=== PATIENT | female | born 1935 | race Caucasian/White ===

== ENCOUNTER 2020-08-20 06:08 | Emergency (ER) | payer MEDICARE, OTHER ==
[2020-08-20 06:21] VITALS: BP 167/94; PULSE 81
--- NOTE | 2020-08-20 06:58 | EDM.PDOC ---
<Ben Serrano - Last Filed: 08/20/20 07:18> ED HPI GENERAL MEDICAL PROBLEM - General Chief Complaint: Cardiovascular Problem Stated Complaint: HOT FLASHES/SWEATING/CHEST PAINS ON AND OFF Time Seen by Provider: 08/20/20 06:22 Source of Information: Reports: Patient, Other (Neighbor) History Limitations: Reports: No Limitations - History of Present Illness INITIAL COMMENTS - FREE TEXT/NARRATIVE: Mrs. Koenig is a very pleasant 85-year-old woman who is now brought to the ED by her neighbor after experiencing brief episodes of feeling hot and possibly diaphoretic since last night, then experiencing brief episodes of chest tightness or heaviness and lightheadedness this morning. She states that the sensation of feeling hot comes and goes, typically lasting about 5 minutes, then recurring about every 2 hours. Her chest heaviness or tightness also comes and goes, lasting about 2 minutes, also recurring about every 2 hours, but she states that it is not associated with her feeling hot. Her lightheadedness is worse if she is upright. No associated dyspnea or sense of impending doom, although the patient states that she has a very brief episode of nausea once this morning. She denies prior similar symptoms. She did not take any [id number] or home remedies prior to coming to the ED. Here in the ED, the patient's initial BP is found to be elevated at 167/94, otherwise, she is hemodynamically stable, afebrile, saturating 98% on room air. Prior to last night, the patient denies having a recent fever, chills, sore throat, ear pain, nasal or sinus congestion, cough, dyspnea, chest pain, palpitations, nausea, vomiting, constipation, diarrhea, abdominal pain, urinary symptoms, recent weight gain or weight loss, recent bloody bowel movements or black bowel movements, recent joint aches, headaches, or rashes. The patient's PCP is AJ Doe. Her Ironworker is Dr. Jake Edwards. She has not received an influenza vaccine this season, and declined an offer to get one here in the ED. Chest Pain Score (Numeric/FACES): 2 - Related Data Allergies Allergy/AdvReac Type Severity Reaction Status Date / Time Penicillins Allergy Swelling Verified 08/20/20 06:21 procaine [From Novocain] Allergy Cannot Verified 08/20/20 06:21 Remember codeine AdvReac Nausea Verified 08/20/20 06:21 Home Meds: Home Meds Calcium Carbonate [Calcium] 1 tab PO DAILY 07/04/16 [History] Cholecalciferol (Vitamin D3) [Vitamin D3] 1 tab PO DAILY 07/04/16 [History] Folic Acid 1 cap PO DAILY 07/04/16 [History] Levothyroxine Sodium 1 tab PO DAILY 07/04/16 [History] Methotrexate Sodium [Methotrexate] 6 tab PO MO 07/04/16 [History] Hydroxychloroquine Sulfate [Plaquenil] 200 mg PO BID 07/05/16 [History] Biotin 5,000 mcg SL DAILY 08/20/20 [History] Past Medical History HEENT History: Reports: Impaired Vision (wears glasses), Other (See Below) (Dentures) Musculoskeletal History: Reports: Osteoarthritis Endocrine/Metabolic History: Reports: Hypothyroidism (following partial thyroidectomy) - Past Surgical History HEENT Surgical History: Reports: Tonsillectomy Female Surgical History: Reports: Section (x 1) Endocrine Surgical History: Reports: Thyroidectomy (partial) Social & Family History - Tobacco Use Tobacco Use Status *Q: Never Tobacco User - Alcohol Use Alcohol Use History: No - Recreational Drug Use Recreational Drug Use: No - Living Situation & Occupation Living situation: Reports: , Alone Occupation: Retired ED ROS GENERAL - Review of Systems Review Of Systems: Comprehensive ROS is negative, except as noted in HPI. ED EXAM, GENERAL - Physical Exam Exam: See Below Exam Limited By: No Limitations General Appearance: Alert, WD/WN, No Apparent Distress Eye Exam: Bilateral Eye: EOMI, Normal Inspection Ears: Normal External Exam, Hearing Grossly Normal Nose: Normal Inspection Throat/Mouth: Normal Inspection, Normal Lips, Normal Voice, No Airway Compromise Head: Atraumatic, Normocephalic Neck: Normal Inspection, Full Range of Motion Respiratory/Chest: No Respiratory Distress, Lungs Clear, Normal Breath Sounds, No Accessory Muscle Use Cardiovascular: Normal Peripheral Pulses, Regular Rate, Rhythm, No Gallop, No JVD, No Murmur, No Rub Peripheral Pulses: 3+: Radial (L), Radial (R) GI/Abdominal: Normal Bowel Sounds, Soft, Non-Tender, No Organomegaly, No Distention, No Abnormal Bruit, No Mass Back Exam: Normal Inspection, Full Range of Motion, NT Extremities: Normal Inspection, Normal Range of Motion, Normal Capillary Refill Neurological: Alert, Oriented, Normal Cognition, No Motor/Sensory Deficits Psychiatric: Normal Affect Skin Exam: Warm, Dry, Intact, Normal Color, No Rash #1 Interpretation EKG Date: 08/20/20 Time: 06:19 Rhythm: NSR Rate (Beats/Min): 80 [place]: 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 No associated dyspnea, although she did have a single brief episode of nausea. ECG obtained at triage demonstrates a right bundle branch block and left anterior fascicular block, preventing me from determining if there are any ischemic changes. She is in a normal sinus rhythm, but has left atrial enlargement and a borderline first- degree AV block, and her QTc prolonged at 510 ms. Her physical exam is unremarkable. A CBC, CMP, troponin, and portable chest x-ray were ordered at triage. I have added a Mg level, coags and orthostatics. 08/20/20 07:21 The patient's CBC is unremarkable. Her CMP is remarkable for a Cr at 1.3, with a BUN normal at 15, and the remainder of her CMP being unremarkable. Her troponin is undetectably low. Her coags are still pending. Orthostatics and a portable chest x-ray have not yet been obtained. Case discussed with Dr. Valdez, and care of the patient turned over to him at this time, for change of shift. Departure - Departure Disposition: Home, Self-Care 01 Clinical Impression: Palpitations, Atypical chest pain - Discharge Information *PRESCRIPTION DRUG MONITORING PROGRAM REVIEWED*: Not Applicable *COPY OF PRESCRIPTION DRUG MONITORING REPORT IN PATIENT TIFFANY: Not Applicable Instructions: Nonspecific Chest Pain, Adult, [id number], Palpitations, [id number] Referrals: Aziza Dudley PA-C [Primary Care Provider] - Jake Edwards MD [Ordering Only Provider] - Forms: ED Department Discharge Additional Instructions: 48 hour holter moniter. Rest. Continue current meds. Follow up with Aziza Dudley at the clinic in about 5 to 10 days to get Holter results, further evaluation and treatment as needed. Return to ED as discussed if symptoms worsening in any way. Sepsis Event Note (ED) - Evaluation Sepsis Screening Result: No Definite Risk <Jluis Valdez - Last Filed: 08/20/20 11:02> Course - Vital Signs Last Recorded V/S: Last Vital Signs Temp 98.5 F 08/20/20 06:19 Pulse 81 08/20/20 06:19 Resp 16 08/20/20 06:19 BP 167/94 H 08/20/20 06:19 Pulse Ox 98 08/20/20 06:19 - Orders/Labs/Meds Orders: Active Orders 24 hr Category Date Time Status EKG Documentation Completion [RC] ASDIRECTED Care 08/20/20 06:25 Active Holter Monitor 48 Hours [RC] .PRN Care 08/20/20 10:35 Active Orthostatic Vital Signs [RC] STAT Care 08/20/20 06:44 Active Chest 1V Frontal [CR] Stat Exams 08/20/20 06:25 Taken EKG 12 Lead [EK] Stat Ther 08/20/20 06:25 Ordered Labs: Laboratory Tests 08/20/20 08/20/20 08/20/20 Range/Units 06:25 06:25 06:25 WBC 5.14 (3.98-10.04) K/mm3 RBC 4.35 (3.98-5.22) M/mm3 Hgb 13.9 (11.2-15.7) gm/dl Hct 42.4 (34.1-44.9) % MCV 97.5 H (79.4-94.8) fl MCH 32.0 (25.6-32.2) pg MCHC 32.8 (32.2-35.5) g/dl RDW Std Deviation 48.1 H (36.4-46.3) fL Plt Count 192 (182-369) K/mm3 MPV 11.2 (9.4-12.3) fl Neut % (Auto) 74.2 H (34.0-71.1) % Lymph % (Auto) 17.1 L (19.3-51.7) % [place] % (Auto) 6.4 (4.7-12.5) % Eos % (Auto) 1.9 (0.7-5.8) Baso % (Auto) 0.4 (0.1-1.2) % Neut # (Auto) 3.81 (1.56-6.13) K/mm3 Lymph # (Auto) 0.88 L (1.18-3.74) K/mm3 [place] # (Auto) 0.33 (0.24-0.36) K/mm3 Eos # (Auto) 0.10 (0.04-0.36) K/mm3 Baso # (Auto) 0.02 (0.01-0.08) K/mm3 PT 10.2 (9.7-12.0) SECONDS INR 0.95 APTT 27.1 (21.7-31.4) SECONDS Sodium 142 (136-145) mEq/L Potassium 4.0 (3.5-5.1) mEq/L Chloride 108 H (98-107) mEq/L Carbon Dioxide 25 (21-32) mEq/L Anion Gap 13.0 (5-15) BUN 15 (7-18) mg/dL Creatinine 1.3 H (0.55-1.02) mg/dL Est Cr Clr Drug Dosing 27.32 mL/min Estimated GFR (MDRD) 39 (>60) mL/min BUN/Creatinine Ratio 11.5 L (14-18) Glucose 109 (83-115) mg/dL Calcium 9.6 (8.5-10.1) mg/dL Magnesium (1.8-2.4) mg/dl Total Bilirubin 0.3 (0.2-1.0) mg/dL AST 17 (15-37) U/L ALT 28 (14-59) U/L Alkaline Phosphatase 75 (46-116) U/L Troponin I < 0.017 (0.00-0.056) ng/mL Total Protein 7.1 (6.4-8.2) g/dl Albumin 3.4 (3.4-5.0) g/dl Globulin 3.7 gm/dL Albumin/Globulin Ratio 0.9 L (1-2) 08/20/20 08/20/20 Range/Units 06:35 09:42 WBC (3.98-10.04) K/mm3 RBC (3.98-5.22) M/mm3 Hgb (11.2-15.7) gm/dl Hct (34.1-44.9) % MCV (79.4-94.8) fl MCH (25.6-32.2) pg MCHC (32.2-35.5) g/dl RDW Std Deviation (36.4-46.3) fL Plt Count (182-369) K/mm3 MPV (9.4-12.3) fl Neut % (Auto) (34.0-71.1) % Lymph % (Auto) (19.3-51.7) % [place] % (Auto) (4.7-12.5) % Eos % (Auto) (0.7-5.8) Baso % (Auto) (0.1-1.2) % Neut # (Auto) (1.56-6.13) K/mm3 Lymph # (Auto) (1.18-3.74) K/mm3 [place] # (Auto) (0.24-0.36) K/mm3 Eos # (Auto) (0.04-0.36) K/mm3 Baso # (Auto) (0.01-0.08) K/mm3 PT (9.7-12.0) SECONDS INR APTT (21.7-31.4) SECONDS Sodium (136-145) mEq/L Potassium (3.5-5.1) mEq/L Chloride (98-107) mEq/L Carbon Dioxide (21-32) mEq/L Anion Gap (5-15) BUN (7-18) mg/dL Creatinine (0.55-1.02) mg/dL Est Cr Clr Drug Dosing mL/min Estimated GFR (MDRD) (>60) mL/min BUN/Creatinine Ratio (14-18) Glucose (83-115) mg/dL Calcium (8.5-10.1) mg/dL Magnesium 2.2 (1.8-2.4) mg/dl Total Bilirubin (0.2-1.0) mg/dL AST (15-37) U/L ALT (14-59) U/L Alkaline Phosphatase (46-116) U/L Troponin I < 0.017 (0.00-0.056) ng/mL Total Protein (6.4-8.2) g/dl Albumin (3.4-5.0) g/dl Globulin gm/dL Albumin/Globulin Ratio (1-2) - Re-Assessments/Exams Free Text/Narrative Re-Assessment/Exam: 08/20/20 08:00. Have assumed care from Dr Serrano after change of shift. I agree with his hx and exam as documented. Trop. has come back normal. other labs also all relatively normal. CXR is good. She is resting comfortably pain free. Will do a 2nd 3 hr trop. 08/20/20 10:25. repeat trop also normal. She has been pain free here in the ED. I do notice some PAC's while visiting with her. She states she has been noticing palpitations on and off and that may be some of the discomfort and associated sx she reported on arrival to ED. Have not seen any PVC's or other rythm abnormality and nothing else reported to me. Will send her home with a 48 hr holter moniter. Departure - Departure Time of Disposition: 10:49 Condition: Fair Sepsis Event Note (ED) - Focused Exam Vital Signs: Vital Signs Temp Pulse Resp BP Pulse Ox 08/20/20 06:19 98.5 F 81 16 167/94 H 98 - My Orders Last 24 Hours: My Active Orders 08/20/20 10:35 Holter Monitor 48 Hours [RC] .PRN - Assessment/Plan Last 24 Hours: My Active Orders 08/20/20 10:35 Holter Monitor 48 Hours [RC] .PRN
--- NOTE | 2020-08-21 10:23 | CR ---
Chest: Portable view of the chest was obtained. Comparison: Prior chest x-ray of 02/16/16. Heart size and mediastinum are normal for portable technique. Lungs are clear with no acute parenchymal change. Bony structures show nothing acute. Impression: 1. Nothing acute is appreciated on portable chest x-ray. Diagnostic code #1
== END 2020-08-20 11:00 | disposition home or self-care (01) ==
LOC: JD.ED 06:08
DX: R07.89 Other chest pain (principal); R00.2 Palpitations; I45.10 Unspecified right bundle-branch block; E03.9 Hypothyroidism, unspecified; Z98.890 Other specified postprocedural states; Z88.0 Allergy status to penicillin; Z88.8 Allergy status to other drugs, medicaments and biological substances; Z88.5 Allergy status to narcotic agent; Z79.899 Other long term (current) drug therapy
CPT/HCPCS: 36415; 71045; 71045-26; 80053; 83735; 84484; 85025; 85610; 85730; 93005; 93010; 93225; 93226; 99284; 99285-25

== ENCOUNTER 2020-11-01 08:20 | Day surgery (SDC) | payer MEDICARE, OTHER ==
[~2020-11-01 08:20] MED LIST: Cefuroxime 10 MG/ML SYRINGE EYERT SCH; Lidocaine 1% PF 2 ML SDV INJECT SCH; Pilocarpine 4% Ophth Soln 15 ML Bot EYERT SCH
--- NOTE | 2020-11-01 08:51 | PCM.PREANE ---
Preanesthetic Assessment - Anesthesia/Transfusion/Family Hx Anesthesia History: Prior Anesthesia Without Reaction Transfusion History: No Prior Transfusion(s) Type of Transfusion Reactions: Reports: Unknown - Review of Systems General: No Symptoms Pulmonary: No Symptoms Cardiovascular: No Symptoms, Other (EF 60-65%, EKG nsr with LAE, 1 avb, RBBB, Lafb) Gastrointestinal: No Symptoms Neurological: No Symptoms Other: Reports: Thyroid Problems - Physical Assessment NPO Status Date: 10/31/20 NPO Status Time: 20:00 Height: 1.63 m Weight: 79.379 kg ASA Class: 2 Mental Status: Alert & Oriented x3 Dentition: Reports: Dentures Thyro-Mental Finger Breadths: 3 Mouth Opening Finger Breadths: 3 ROM/Head Extension: Full Lungs: Clear to Auscultation, Normal Respiratory Effort Cardiovascular: Regular Rate, Regular Rhythm - Allergies Allergies/Adverse Reactions: Allergies Allergy/AdvReac Type Severity Reaction Status Date / Time Penicillins Allergy Swelling Verified 10/28/20 12:54 procaine [From Novocain] Allergy Cannot Verified 10/28/20 12:54 Remember codeine AdvReac Nausea Verified 10/28/20 12:54 - Blood Blood Available: No Product(s) Available: None - Anesthesia Plan Pre-Op Medication Ordered: None - Acknowledgements Anesthesia Type Planned: MAC PreAnesthesia Questionnaire HEENT History: Reports: Impaired Vision (wears glasses), Other (See Below) (Dentures) Other HEENT History: glasses, dentures Cardiovascular History: Reports: Other (See Below) Other Cardiovascular History: edema, irreg heart rhythm Gastrointestinal History: Reports: Chronic Diarrhea 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: Musculoskeletal History: Reports: Osteoarthritis Endocrine/Metabolic History: Reports: Hypothyroidism (following partial thyroidectomy) Dermatologic History: Reports: Seborrheic Dermatitis Other Dermatologic History: actinic keratosis - Past Surgical History HEENT Surgical History: Reports: Tonsillectomy Female Surgical History: Reports: Section (x 1) Endocrine Surgical History: Reports: Thyroidectomy (partial) - HOME MEDS Home Medications: Home Meds Calcium Carbonate [Calcium] 1 tab PO DAILY 07/04/16 [History] Cholecalciferol (Vitamin D3) [Vitamin D3] 1 tab PO DAILY 07/04/16 [History] Folic Acid 1 cap PO DAILY 07/04/16 [History] Levothyroxine Sodium 1 tab PO DAILY 07/04/16 [History] Methotrexate Sodium [Methotrexate] 6 tab PO MO 07/04/16 [History] Hydroxychloroquine Sulfate [Plaquenil] 200 mg PO BID 07/05/16 [History] Biotin 5,000 mcg SL DAILY 08/20/20 [History] Lutein/Minerals/Vit A,C & E [Ocuvite] 1 tab PO DAILY 10/28/20 [History] Metoprolol Succinate 25 mg PO DAILY 10/28/20 [History] - CURRENT (IN HOUSE) MEDS Current Meds: Current Medications Brimonidine Tartrate (Brimonidine 0.2% Ophth Soln 5 Ml Bottle) 0 ml EYERT ASDIRECTED JOSE Stop: 11/01/20 18:00 Cefuroxime Sodium (Cefuroxime 10 Mg/Ml Syringe) 0 mg EYERT ASDIRECTED JOSE Stop: 11/01/20 18:00 Lidocaine HCl (Lidocaine 1% Pf 2 Ml Sdv) 0 ml INJECT ASDIRECTED JOSE Stop: 11/01/20 18:00 Phenylephrine HCl (Phenylephrine 2.5% Ophth Soln 2 Ml Bot) 0 ml EYERT ASDIRECTED JOSE Stop: 11/01/20 18:00 Pilocarpine HCl (Pilocarpine 4% Ophth Soln 15 Ml Bot) 0 ml EYERT ASDIRECTED JOSE Stop: 11/01/20 18:00 Polymyxin/Trimethoprim Sulfate (Polymyxin B/Trimethoprim 10 Ml Bottle) 0 ml EYERT ASDIRECTED JOSE Stop: 11/01/20 18:00 Tetracaine HCl (Tetracaine Hcl/Pf 0.5% 4 Ml Bottle) 0 ml EYEBOTH ASDIRECTED JOSE Stop: 11/01/20 18:00 Tropicamide (Tropicamide 1% Ophth Soln 15 Ml Bottle) 0 ml EYERT ASDIRECTED JOSE Stop: 11/01/20 18:00
[2020-11-01] MEDS: Polymyxin B/Trimethoprim 10 ML Bottle EYERT SCH ×3 (08:55→10:28)
[2020-11-01] MEDS: Brimonidine 0.2% Ophth Soln 5 ML Bottle EYERT SCH ×3 (08:59→10:28)
[2020-11-01] MEDS: Phenylephrine 2.5% Ophth Soln 2 ML Bot EYERT SCH ×5 (09:04→10:09)
[2020-11-01] MEDS: Tropicamide 1% Ophth Soln 15 ML Bottle EYERT SCH ×4 (09:07→09:52)
[2020-11-01] MEDS: Tetracaine HCl/PF 0.5% 4 ML Bottle EYEBOTH SCH ×3 (09:52→10:17)
--- NOTE | 2020-11-01 10:29 | PCM48HPAN ---
Post Anesthesia Note - EVALUATION WITHIN 48HRS OF ANESTHETIC Vital Signs in Normal Range: Yes Patient Participated in Evaluation: Yes Respiratory Function Stable: Yes Airway Patent: Yes Cardiovascular Function Stable: Yes Hydration Status Stable: Yes Pain Control Satisfactory: Yes Nausea and Vomiting Control Satisfactory: Yes Mental Status Recovered: Yes Vital Signs: Last Vital Signs Temp 36.7 C 11/01/20 08:35 Pulse 70 11/01/20 08:35 Resp 16 11/01/20 08:35 BP 154/78 H 11/01/20 08:35 Pulse Ox 96 11/01/20 08:35
[2020-11-01 10:51] VITALS: BP 124/81; PULSE 64
== END 2020-11-01 10:37 | disposition home or self-care (01) ==
LOC: JD.SDS 08:20
PROVIDERS: ATTEND Ophthalmology
DX: H25.813 Combined forms of age-related cataract, bilateral (principal); H02.834 Dermatochalasis of left upper eyelid; H02.831 Dermatochalasis of right upper eyelid; H35.373 Puckering of macula, bilateral; H16.103 Unspecified superficial keratitis, bilateral; H16.223 Keratoconjunctivitis sicca, not specified as Sjogren's, bilateral; H43.812 Vitreous degeneration, left eye; E07.9 Disorder of thyroid, unspecified; Z79.899 Other long term (current) drug therapy; Z79.890 Hormone replacement therapy; Z88.5 Allergy status to narcotic agent; Z88.8 Allergy status to other drugs, medicaments and biological substances; I48.91 Unspecified atrial fibrillation; Z88.0 Allergy status to penicillin
CPT/HCPCS: 66984; J0697; C1780

== ENCOUNTER 2020-12-06 08:59 | Day surgery (SDC) | payer MEDICARE, OTHER ==
[2020-12-06] MEDS: Polymyxin B/Trimethoprim 10 ML Bottle EYELF SCH ×4 (09:07→12:41)
[2020-12-06] MEDS: Brimonidine 0.2% Ophth Soln 5 ML Bottle EYELF SCH ×4 (09:12→12:41)
[2020-12-06] MEDS: Phenylephrine 2.5% Ophth Soln 2 ML Bot EYELF SCH ×6 (09:18→12:39)
--- NOTE | 2020-12-06 09:20 | PCM.PREANE ---
Preanesthetic Assessment - Procedure Proposed Procedure: left cataract extraction with implant - Anesthesia/Transfusion/Family Hx Anesthesia History: Prior Anesthesia Without Reaction Family History of Anesthesia Reaction: No Transfusion History: No Prior Transfusion(s) Intubation History: Unknown - Review of Systems General: No Symptoms Pulmonary: No Symptoms Cardiovascular: No Symptoms Gastrointestinal: No Symptoms Neurological: No Symptoms Other: Reports: None (connective tissue disease ), Thyroid Problems - Physical Assessment NPO Status Date: 12/05/20 NPO Status Time: 20:00 Vital Signs: Last Vital Signs Temp 36.4 C 12/06/20 09:00 Pulse 63 12/06/20 09:00 Resp 16 12/06/20 09:00 BP 150/76 H 12/06/20 09:00 Pulse Ox 96 12/06/20 09:00 Height: 1.63 m Weight: 79.379 kg ASA Class: 3 Mental Status: Alert & Oriented x3 Dentition: Reports: Dentures (uppper dentures ) Thyro-Mental Finger Breadths: 3 Mouth Opening Finger Breadths: 5 ROM/Head Extension: Full Lungs: Clear to Auscultation, Normal Respiratory Effort Cardiovascular: Regular Rate, Regular Rhythm - Allergies Allergies/Adverse Reactions: Allergies Allergy/AdvReac Type Severity Reaction Status Date / Time Penicillins Allergy Swelling Verified 12/06/20 09:12 procaine [From Novocain] Allergy Cannot Verified 12/06/20 09:12 Remember codeine AdvReac Nausea Verified 12/06/20 09:12 - Blood Blood Available: No - Anesthesia Plan Pre-Op Medication Ordered: None - Acknowledgements Anesthesia Type Planned: MAC Pt an Appropriate Candidate for the Planned Anesthesia: Yes Alternatives and Risks of Anesthesia Discussed w Pt/Guardian: Yes Pt/Guardian Understands and Agrees with Anesthesia Plan: Yes PreAnesthesia Questionnaire HEENT History: Reports: Impaired Vision (wears glasses), Other (See Below) (Dentures) Other HEENT History: glasses, dentures Cardiovascular History: Reports: Other (See Below) Other Cardiovascular History: edema, irreg heart rhythm Gastrointestinal History: Reports: Chronic Diarrhea 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: Musculoskeletal History: Reports: Osteoarthritis Endocrine/Metabolic History: Reports: Hypothyroidism (following partial thyroidectomy) Dermatologic History: Reports: Seborrheic Dermatitis Other Dermatologic History: actinic keratosis - Past Surgical History HEENT Surgical History: Reports: Tonsillectomy Female Surgical History: Reports: Section (x 1) Endocrine Surgical History: Reports: Thyroidectomy (partial) - HOME MEDS Home Medications: Home Meds Calcium Carbonate [Calcium] 1 tab PO DAILY 07/04/16 [History] Cholecalciferol (Vitamin D3) [Vitamin D3] 1 tab PO DAILY 07/04/16 [History] Folic Acid 1 cap PO DAILY 07/04/16 [History] Levothyroxine Sodium 1 tab PO DAILY 07/04/16 [History] Methotrexate Sodium [Methotrexate] 6 tab PO MO 07/04/16 [History] Hydroxychloroquine Sulfate [Plaquenil] 200 mg PO BID 07/05/16 [History] Biotin 5,000 mcg SL DAILY 08/20/20 [History] Lutein/Minerals/Vit A,C & E [Ocuvite] 1 tab PO DAILY 10/28/20 [History] Metoprolol Succinate 25 mg PO DAILY 10/28/20 [History] - CURRENT (IN HOUSE) MEDS Current Meds: Current Medications Brimonidine Tartrate (Brimonidine 0.2% Ophth Soln 5 Ml Bottle) 0 ml EYELF ASDIRECTED JOSE Stop: 12/06/20 18:00 Last Admin: 12/06/20 09:12 Dose: 1 drop Documented by: Cefuroxime Sodium (Cefuroxime 10 Mg/Ml Syringe) 0 mg EYELF ASDIRECTED JOSE Stop: 12/06/20 18:00 Lidocaine HCl (Lidocaine 1% Pf 2 Ml Sdv) 0 ml INJECT ASDIRECTED JOSE Stop: 12/06/20 18:00 Phenylephrine HCl (Phenylephrine 2.5% Ophth Soln 2 Ml Bot) 0 ml EYELF ASDIRECTED JOSE Stop: 12/06/20 18:00 Pilocarpine HCl (Pilocarpine 4% Ophth Soln 15 Ml Bot) 0 ml EYELF ASDIRECTED JOSE Stop: 12/06/20 18:00 Polymyxin/Trimethoprim Sulfate (Polymyxin B/Trimethoprim 10 Ml Bottle) 0 ml EYELF ASDIRECTED JOSE Stop: 12/06/20 18:00 Last Admin: 12/06/20 09:07 Dose: 1 drop Documented by: Tetracaine HCl (Tetracaine Hcl/Pf 0.5% 4 Ml Bottle) 0 ml EYEBOTH ASDIRECTED JOSE Stop: 12/06/20 18:00 Tropicamide (Tropicamide 1% Ophth Soln 15 Ml Bottle) 0 ml EYELF ASDIRECTED JOSE Stop: 12/06/20 18:00
[2020-12-06] MEDS: Tropicamide 1% Ophth Soln 15 ML Bottle EYELF SCH ×4 (09:26→10:25)
[2020-12-06] MEDS: Tetracaine HCl/PF 0.5% 4 ML Bottle EYEBOTH SCH ×5 (10:30→12:40)
[2020-12-06] MEDS: Lidocaine 1% PF 2 ML SDV INJECT SCH ×2 (10:47→12:40)
[2020-12-06] MEDS: Cefuroxime 10 MG/ML SYRINGE EYELF SCH ×2 (11:04→12:41)
[2020-12-06] MEDS: Pilocarpine 4% Ophth Soln 15 ML Bot EYELF SCH ×2 (11:05→12:41)
--- NOTE | 2020-12-06 11:07 | PCM48HPAN ---
Post Anesthesia Note - EVALUATION WITHIN 48HRS OF ANESTHETIC Vital Signs in Normal Range: Yes Patient Participated in Evaluation: Yes Respiratory Function Stable: Yes Airway Patent: Yes Cardiovascular Function Stable: Yes Hydration Status Stable: Yes Pain Control Satisfactory: Yes Nausea and Vomiting Control Satisfactory: Yes Mental Status Recovered: Yes Vital Signs: Last Vital Signs Temp 36.4 C 12/06/20 09:00 Pulse 63 12/06/20 09:00 Resp 16 12/06/20 09:00 BP 150/76 H 12/06/20 09:00 Pulse Ox 96 12/06/20 09:00
[2020-12-06 11:21] VITALS: BP 143/71; PULSE 68
== END 2020-12-06 11:15 | disposition home or self-care (01) ==
LOC: JD.SDS 08:59
PROVIDERS: ATTEND Ophthalmology
DX: H25.812 Combined forms of age-related cataract, left eye (principal); M06.9 Rheumatoid arthritis, unspecified; E03.9 Hypothyroidism, unspecified; Z88.0 Allergy status to penicillin; Z88.5 Allergy status to narcotic agent; Z88.8 Allergy status to other drugs, medicaments and biological substances; Z98.890 Other specified postprocedural states; Z79.899 Other long term (current) drug therapy; Z79.890 Hormone replacement therapy
CPT/HCPCS: 66984; J0697; C1780

== ENCOUNTER 2021-05-24 18:44 | Emergency (ER) | payer MEDICARE, OTHER ==
[2021-05-24 19:06] VITALS: BP 163/78; PULSE 78
--- NOTE | 2021-05-24 19:51 | EDM.PDOC ---
ED HPI GENERAL MEDICAL PROBLEM - General Chief Complaint: Neurological Problem Stated Complaint: LIGHTHEADED/LOSS OF BALANCE Time Seen by Provider: 05/24/21 19:16 Source of Information: Reports: Patient, Other (Neighbor) History Limitations: Reports: No Limitations - History of Present Illness INITIAL COMMENTS - FREE TEXT/NARRATIVE: Mrs. Koenig is a very pleasant 86-year-old woman who now presents the ED stating that she developed lightheadedness and loss of balance while walking to the altar to take communion around 18:30 this evening. She states that she was barely able to make it back to her pew. She was placed into a wheelchair, where she felt nearly syncopal. She states that the episode lasted about 2 minutes, but then recurred about 30 minutes later, again lasting for a few minutes. In both cases, the patient was upright when her symptoms began. On the second episode, she noticed that her heart rate was very low. No prior similar symptoms. The patient states that her PCP started her on metoprolol about 6 months ago, for treatment of PVCs. Here in the ED, the patient states that she is no longer feeling lightheaded, although she is feeling anxious. At triage, her blood pressure was elevated at 163/78, otherwise, she was hemodynamically stable, afebrile, saturating 96% on room air. She appears to be comfortable, in no acute distress. Prior to this evening, the patient denies having a recent fever, chills, sore throat, ear pain, nasal or sinus congestion, cough, dyspnea, chest pain, palpitations, nausea, vomiting, constipation, diarrhea, abdominal pain, urinary symptoms, recent weight gain or weight loss, recent bloody bowel movements or black bowel movements, recent joint aches, headaches, or rashes. The patient's PCP is AJ Doe. Her Tool Designer is Dr. Jake Edwards. She has not received a COVID vaccination, nor an influenza vaccination this season. - Related Data Allergies Allergy/AdvReac Type Severity Reaction Status Date / Time Penicillins Allergy Swelling Verified 12/06/20 09:12 procaine [From Novocain] Allergy Cannot Verified 12/06/20 09:12 Remember codeine AdvReac Nausea Verified 12/06/20 09:12 Home Meds: Home Meds Calcium Carbonate [Calcium] 600 mg PO DAILY 07/04/16 [History] Cholecalciferol (Vitamin D3) [Vitamin D3] 1 tab PO DAILY 07/04/16 [History] Folic Acid 1 mg PO DAILY 07/04/16 [History] Levothyroxine Sodium 137 mcg PO DAILY 07/04/16 [History] Methotrexate Sodium [Methotrexate] 6 tab PO MO 07/04/16 [History] Hydroxychloroquine Sulfate [Plaquenil] 200 mg PO BID 07/05/16 [History] Biotin 5,000 mcg SL DAILY 08/20/20 [History] Lutein/Minerals/Vit A,C & E [Ocuvite] 1 tab PO DAILY 10/28/20 [History] Metoprolol Succinate 25 mg PO DAILY 10/28/20 [History] Past Medical History HEENT History: Reports: Impaired Vision (wears glasses), Other (See Below) (Dentures) Cardiovascular History: Reports: Other (See Below) (PVCs) Musculoskeletal History: Reports: Osteoarthritis, RA Endocrine/Metabolic History: Reports: Hypothyroidism (hyperthyroid, s/p partial thyroidectomy) Dermatologic History: Reports: Seborrheic Dermatitis - Infectious Disease History Infectious Disease History: Reports: Chicken Pox, Measles, Mumps - Past Surgical History HEENT Surgical History: Reports: Adenoidectomy, Tonsillectomy Female Surgical History: Reports: Section (x 1) Endocrine Surgical History: Reports: Thyroidectomy (partial) Musculoskeletal Surgical History: Reports: Carpal Tunnel (right only) Social & Family History - Tobacco Use Tobacco Use Status *Q: Never Tobacco User - Caffeine Use Caffeine Use: Reports: Coffee - Alcohol Use Alcohol Use History: Yes Alcohol Use Frequency: Rarely - Recreational Drug Use Recreational Drug Use: No - Living Situation & Occupation Living situation: Reports: , Alone Occupation: Retired ED ROS GENERAL - Review of Systems Review Of Systems: Comprehensive ROS is negative, except as noted in HPI. GI/Abdominal: Reports: Diarrhea (chronic) ED EXAM, DIZZINESS - Physical Exam Exam: See Below Exam Limited By: No Limitations General Appearance: Alert, WD/WN, No Apparent Distress Eye Exam: Bilateral Eye: EOMI, Normal Inspection Ears: Normal External Exam Nose: Normal Inspection Throat/Mouth: Normal Inspection, Normal Lips, Normal Voice, No Airway Compromise Head Exam: Atraumatic Neck: Normal Inspection, Full Range of Motion Respiratory/Chest: No Respiratory Distress, Lungs Clear, Normal Breath Sounds, No Accessory Muscle Use Cardiovascular: Normal Peripheral Pulses, Regular Rate, Rhythm, No Gallop, No JVD, No Murmur, No Rub GI/Abdominal: Normal Bowel Sounds, Soft, Non-Tender, No Organomegaly, No Distention, No Abnormal Bruit, No Mass Neurological: Alert, No Motor/Sensory Deficits, Oriented x 3 Back Exam: Normal Inspection, Full Range of Motion, NT Extremities: Normal Inspection, Normal Range of Motion, Normal Capillary Refill, Other (1+ pretibial edema bilaterally) Psychiatric: Normal Affect Skin Exam: Warm, Dry, Intact, Normal Color, No Rash #1 Interpretation EKG Date: 05/24/21 Time: 19:48 Rhythm: NSR Rate (Beats/Min): 67 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) QRS: RBBB ST-T: Normal QT: Prolonged (QTc 486 ms) Comparison: No Change (08/20/2020) Course - Vital Signs Last Recorded V/S: Last Vital Signs Temp 36.0 C L 05/24/21 19:04 Pulse 78 05/24/21 19:04 Resp 16 05/24/21 19:04 BP 163/78 H 05/24/21 19:04 Pulse Ox 96 05/24/21 19:04 Orthostatic Blood Pressure [ 148/93 Standing] Orthostatic Blood Pressure [ 148/73 Supine] - Orders/Labs/Meds Orders: Active Orders 24 hr Category Date Time Status CULTURE URINE [MREF] Stat Lab 05/24/21 20:26 Received Labs: Laboratory Tests 05/24/21 05/24/21 05/24/21 Range/Units 19:55 19:55 19:55 WBC 5.59 (3.98-10.04) K/mm3 RBC 4.39 (3.98-5.22) M/mm3 Hgb 13.8 (11.2-15.7) gm/dl Hct 42.4 (34.1-44.9) % MCV 96.6 H (79.4-94.8) fl MCH 31.4 (25.6-32.2) pg MCHC 32.5 (32.2-35.5) g/dl RDW Std Deviation 46.9 H (36.4-46.3) fL Plt Count 190 (182-369) K/mm3 MPV 10.9 (9.4-12.3) fl Neutrophils % (Manual) 73 H (40-60) % Band Neutrophils % 0 (0-10) % Lymphocytes % (Manual) 18 L (20-40) % Atypical Lymphs % 0 % Monocytes % (Manual) 8 (2-10) % Eosinophils % (Manual) 1 (0.7-5.8) % Basophils % (Manual) 0 L (0.1-1.2) Platelet Estimate Adequate RBC Morph Comment Normal D-Dimer, Quantitative 0.47 (0.19-0.50) mg/L Sodium 143 (136-145) mEq/L Potassium 4.1 (3.5-5.1) mEq/L Chloride 108 H (98-107) mEq/L Carbon Dioxide 26 (21-32) mEq/L Anion Gap 13.1 (5-15) BUN 17 (7-18) mg/dL Creatinine 1.2 H (0.55-1.02) mg/dL Est Cr Clr Drug Dosing 29.06 mL/min Estimated GFR (MDRD) 43 (>60) mL/min BUN/Creatinine Ratio 14.2 (14-18) Glucose 95 (70-99) mg/dL POC Glucose (70-99) mg/dL Calcium 9.1 (8.5-10.1) mg/dL Magnesium 2.1 (1.8-2.4) mg/dL Total Bilirubin 0.3 (0.2-1.0) mg/dL AST 14 L (15-37) U/L ALT 31 (14-59) U/L Alkaline Phosphatase 75 (46-116) U/L Troponin I < 0.017 (0.00-0.056) ng/mL C-Reactive Protein <0.2 (<1.0) mg/dL Total Protein 6.4 (6.4-8.2) g/dl Albumin 3.4 (3.4-5.0) g/dl Globulin 3.0 gm/dL Albumin/Globulin Ratio 1.1 (1-2) TSH 3rd Generation 2.338 (0.358-3.74) uIU/mL Urine Color (Yellow) Urine Appearance (Clear) Urine pH (5.0-8.0) Ur Specific Lyman (1.005-1.030) Urine Protein (Negative) Urine Glucose (UA) (Negative) Urine Ketones (Negative) Urine Occult Blood (Negative) Urine Nitrite (Negative) Urine Bilirubin (Negative) Urine Urobilinogen (0.2-1.0) Ur Leukocyte Esterase (Negative) Urine RBC (0-5) /hpf Urine WBC (0-5) /hpf Ur Squamous Epith Cells (0-5) /hpf Urine Bacteria (FEW) /hpf Urine Mucus (FEW) /hpf SARS-CoV-2 RNA (RAVI) (NEGATIVE) 05/24/21 05/24/21 05/24/21 Range/Units 20:14 20:15 20:26 WBC (3.98-10.04) K/mm3 RBC (3.98-5.22) M/mm3 Hgb (11.2-15.7) gm/dl Hct (34.1-44.9) % MCV (79.4-94.8) fl MCH (25.6-32.2) pg MCHC (32.2-35.5) g/dl RDW Std Deviation (36.4-46.3) fL Plt Count (182-369) K/mm3 MPV (9.4-12.3) fl Neutrophils % (Manual) (40-60) % Band Neutrophils % (0-10) % Lymphocytes % (Manual) (20-40) % Atypical Lymphs % % Monocytes % (Manual) (2-10) % Eosinophils % (Manual) (0.7-5.8) % Basophils % (Manual) (0.1-1.2) Platelet Estimate RBC Morph Comment D-Dimer, Quantitative (0.19-0.50) mg/L Sodium (136-145) mEq/L Potassium (3.5-5.1) mEq/L Chloride (98-107) mEq/L Carbon Dioxide (21-32) mEq/L Anion Gap (5-15) BUN (7-18) mg/dL Creatinine (0.55-1.02) mg/dL Est Cr Clr Drug Dosing mL/min Estimated GFR (MDRD) (>60) mL/min BUN/Creatinine Ratio (14-18) Glucose (70-99) mg/dL POC Glucose 91 (70-99) mg/dL Calcium (8.5-10.1) mg/dL Magnesium (1.8-2.4) mg/dL Total Bilirubin (0.2-1.0) mg/dL AST (15-37) U/L ALT (14-59) U/L Alkaline Phosphatase (46-116) U/L Troponin I (0.00-0.056) ng/mL C-Reactive Protein (<1.0) mg/dL Total Protein (6.4-8.2) g/dl Albumin (3.4-5.0) g/dl Globulin gm/dL Albumin/Globulin Ratio (1-2) TSH 3rd Generation (0.358-3.74) uIU/mL Urine Color Yellow (Yellow) Urine Appearance Clear (Clear) Urine pH 6.5 (5.0-8.0) Ur Specific Lyman 1.015 (1.005-1.030) Urine Protein Negative (Negative) Urine Glucose (UA) Negative (Negative) Urine Ketones Negative (Negative) Urine Occult Blood Trace-intact H (Negative) Urine Nitrite Negative (Negative) Urine Bilirubin Negative (Negative) Urine Urobilinogen 0.2 (0.2-1.0) Ur Leukocyte Esterase 2+ H (Negative) Urine RBC 0-5 (0-5) /hpf Urine WBC 20-30 H (0-5) /hpf Ur Squamous Epith Cells 0-5 (0-5) /hpf Urine Bacteria Few (FEW) /hpf Urine Mucus Not seen (FEW) /hpf SARS-CoV-2 RNA (RAVI) Negative (NEGATIVE) - Re-Assessments/Exams Free Text/Narrative Re-Assessment/Exam: 05/24/21 19:45 I have ordered a work-up that includes orthostatics, an Accu-Chek, numerous blood tests, urinalysis, a swab for the SARS-CoV-2 virus, and an ECG. 05/24/21 20:28 The patient is not orthostatic. Her Accu-Chek is 91. 05/24/21 21:33 The patient's CBC is unremarkable. Her CMP is unremarkable. Her magnesium level is within normal limits at 2.1. Her CRP is undetectably low. Her TSH is within normal limits at 2.338. Her troponin is undetectably low. Her D-dimer is within normal limits at 0.47. Her urinalysis is remarkable for trace occult blood with 0-5 RBCs, 2+ leukocyte esterase with 20-30 RBCs, nitrate negative with few bacteria, and 0-5 squamous epithelial cells. Her swab for the SARS-CoV-2 virus is negative. Based on the above, I have ordered a urine culture. Since the patient denies dysuria, current guidelines do not recommend treatment unless the culture returns positive for a treatable infection. 05/24/21 21:38 Test results discussed with the patient and her neighbor friend. As above, the only abnormality that we found in today's work-up is pyuria, which current guidelines do not recommend treatment of at this time. I cannot explain the cause of her near syncopal episodes, but she reported that she did not feel dizzy when she stood up for orthostatics. I recommended that she stay ad equately hydrated, even though today's work-up did not indicate that she was dehydrated. I would like her to follow-up with Ms. Dudley in a few days to check on her urine culture results. Departure - Departure Time of Disposition: 21:39 Disposition: Home, Self-Care 01 Condition: Good Clinical Impression: Near syncope - Discharge Information *PRESCRIPTION DRUG MONITORING PROGRAM REVIEWED*: Not Applicable *COPY OF PRESCRIPTION DRUG MONITORING REPORT IN PATIENT TIFFANY: Not Applicable Instructions: Near-Syncope, [id number] Referrals: Aziza Dudley PA-C [Primary Care Provider] - Jake Edwards MD [Ordering Only Provider] - Forms: ED Department Discharge Additional Instructions: You were seen in the emergency room after nearly passing out twice at [facility]. Work-up in the ER included positional blood pressure checks, numerous blood tests, a urinalysis, a swab for the SARS-CoV-2 virus, and an ECG. Your work-up found some white blood cells in your urine, a condition known as pyuria, however, pyuria is not synonymous with an infection, therefore current guidelines do not recommend the routine treatment of asymptomatic pyuria. A sample of your urine has been sent for culture, and you should be notified within a few days if the culture returns positive for an infection. The remainder of your work-up was unremarkable. You are not dehydrated. You are not anemic. There is no sign of an infection. No electrolyte abnormalities were found. You have not suffered a heart attack. You do not have a blood clot in your lungs. Your thyroid hormone level is within normal limits. Your swab for the SARS-CoV-2 virus returned negative. The cause of your symptoms is not known. We recommend that you follow-up with your PCP, AJ Doe, within the next few days, to have her check on your urine culture results. If any other problems, including recurrence of your symptoms, please do not hesitate to return to the ER. Sepsis Event Note (ED) - Focused Exam Vital Signs: Vital Signs Temp Pulse Resp BP Pulse Ox 05/24/21 19:04 36.0 C L 78 16 163/78 H 96 - My Orders Last 24 Hours: My Active Orders 05/24/21 20:26 CULTURE URINE [MREF] Stat - Assessment/Plan Last 24 Hours: My Active Orders 05/24/21 20:26 CULTURE URINE [MREF] Stat
== END 2021-05-24 21:49 | disposition home or self-care (01) ==
LOC: JD.ED 18:44
DX: R55 Syncope and collapse (principal); E03.9 Hypothyroidism, unspecified; Z20.822 Contact with and (suspected) exposure to COVID-19; Z88.0 Allergy status to penicillin; Z88.4 Allergy status to anesthetic agent; Z88.5 Allergy status to narcotic agent; Z79.899 Other long term (current) drug therapy
CPT/HCPCS: 36415; 80053; 81001; 82947; 83735; 84443; 84484; 85007; 85027; 85379; 86140; 87086; 93005; 99284; U0002

== ENCOUNTER 2021-11-26 11:26 | Emergency (ER) | payer MEDICARE, OTHER ==
[2021-11-26] MEDS ORDERED: Sodium Chloride 0.9% 10 ML Syringe FLUSH PRN (11:31)
[2021-11-26 11:37] VITALS: BP 157/65; PULSE 32
[2021-11-26] MEDS ORDERED: Sodium Chloride 0.9% 1,000 ML IV SCH (11:45)
== END 2021-11-26 13:50 ==
LOC: JD.ED 11:26
DX: I44.2 Atrioventricular block, complete (principal); E03.9 Hypothyroidism, unspecified; Z88.0 Allergy status to penicillin; Z88.5 Allergy status to narcotic agent; Z79.899 Other long term (current) drug therapy; Z20.822 Contact with and (suspected) exposure to COVID-19
CPT/HCPCS: 36415; 71045; 80053; 83880; 84443; 84484; 85025; 85610; 93005; 96360; 96361; 99285; J3490; J7030; U0002; 93010

== ENCOUNTER 2024-05-20 07:20 | Emergency (ER) | payer MEDICARE, OTHER ==
[2024-05-20] MEDS ORDERED: Metoclopramide 10 MG/2 ML SDV IVPUSH ONE (07:54)
[2024-05-20] MEDS: Dextrose 5%-0.9% NaCl 1,000 ML IV SCH (08:32)
[2024-05-20] MEDS: Metoclopramide 10 MG/2 ML SDV IVPUSH ONE (08:32)
[2024-05-20 08:34] LABS: APPEARANCE,URINE CLEAR (Clear); BILIRUBIN,URINE NEGATIVE (Negative); COLOR,URINE YELLOW (Yellow); GLUCOSE,URINE NEGATIVE (Negative); KETONES,URINE NEGATIVE (Negative); LEUKOCYTE ESTERASE,URINE 1+ (Negative); NITRITE,URINE NEGATIVE (Negative); OCCULT BLOOD,URINE NEGATIVE (Negative); PH,URINE 6.5 (5.0-8.0); PROTEIN,URINE TRACE (Negative); UROBILINOGEN,URINE 0.2 (0.2-1.0)
[2024-05-20 08:35] LABS: BASOPHILS PERCENT AUTO 0.4 % (0.0-1.0); EOSINOPHILS ABSOLUTE AUTO 0.2 K/mm3 (0.0-0.4); EOSINOPHILS PERCENT AUTO 2.4 % (0.0-6.0); HEMATOCRIT 45.4 % (37.0-47.0); HEMOGLOBIN 14.9 gm/dl (12.0-16.0); IMMATURE GRAN ABSOLUTE AUTO 0.03 K/mm3 (0.00-0.05); IMMATURE GRAN PERCENT AUTO 0.4 % (0.0-0.4); LYMPHOCYTES ABSOLUTE AUTO 0.8 K/mm3 (1.0-4.8); LYMPHOCYTES PERCENT AUTO 10.9 % (24.0-44.0); MEAN CORPUSCULAR HGB CONC 32.8 g/dl (32.0-36.0); MEAN PLATELET VOLUME 10.8 fl (9.4-12.3); MONOCYTES ABSOLUTE AUTO 0.6 K/mm3 (0.0-0.8); MONOCYTES PERCENT AUTO 7.4 % (0.0-8.0); NEUTROPHILS PERCENT AUTO 78.5 % (41.0-71.0); PLATELET COUNT,PLT 187 K/mm3 (150-400); RED BLOOD CELL COUNT 4.97 M/mm3 (4.10-5.30)
[2024-05-20 08:36] LABS: MEAN CORPUSCULAR VOLUME 91.3 fl (83.0-99.0)
[2024-05-20 08:44] LABS: BACTERIA,URINE MODERATE /hpf (FEW); EPITHELIAL CELLS,URINE 0-5 /hpf (0-5); MUCUS,URINE MODERATE /hpf (FEW); RBC,URINE 0-5 /hpf (0-5)
[2024-05-20 09:18] LABS: A/G RATIO 0.9 (1-2); ALBUMIN 3.4 g/dl (3.4-5.0); ANION GAP 12.5 (5-15); BILIRUBIN TOTAL 0.7 mg/dL (0.2-1.0); BUN/CREATININE RATIO 14.5 (14-18); CALCIUM 9.7 mg/dL (8.5-10.1); CREATININE 1.1 mg/dL (0.55-1.02); EST CRCL DRUG DOSING (CG) 29.94 mL/min; MAGNESIUM 2.1 mg/dL (1.8-2.4); PROTEIN TOTAL,TP 7.4 g/dl (6.4-8.2); TSH 1.331 uIU/mL (0.358-3.74)
[2024-05-20 09:22] LABS: POTASSIUM,K 4.5 mEq/L (3.5-5.1)
[2024-05-20 11:36] VITALS: BP 142/75; PULSE 71
== END 2024-05-20 11:20 | disposition home or self-care (01) ==
LOC: JD.ED 07:20
DX: I11.0 Hypertensive heart disease with heart failure (principal); I50.9 Heart failure, unspecified; N39.0 Urinary tract infection, site not specified; E03.9 Hypothyroidism, unspecified; Z88.0 Allergy status to penicillin; Z88.8 Allergy status to other drugs, medicaments and biological substances; Z79.890 Hormone replacement therapy; Z79.899 Other long term (current) drug therapy
CPT/HCPCS: 36415; 80053; 81001; 83735; 83880; 84443; 84484; 85025; 87086; 96361; 96374; 99284; J2765; J7042